=== PATIENT | female | born 1975 | race Caucasian/White ===

== ENCOUNTER → 2021-04-24 | Outpatient (CLI) | payer OTHER ==
--- NOTE | 2021-05-09 06:36 | SLS ---
SLEEP STUDY This is a 46-year-old female patient who is currently under our care at the pulmonary clinic because of chronic cough. The patient has other comorbidities including acid reflux, chronic anxiety, and history of depression. Furthermore, possibility of sleep apnea was also entertained because of loud snoring and reported episodes of stopping breathing in the middle of the night and some degree of increased sleepiness. For that reason, a home sleep study was ordered. PERTINENT PHYSICAL FINDINGS: Height is 5 feet, 9 inches, weight is 248 and BMI is 36.6. The [employer] ApneaLink system was used to complete the home sleep study. Total recording duration was 8 hours and 0 minutes. The study started at 10:35 pm and ended at 6:35 am. RESULTS: Respiratory count showed a total of 0 obstructive apneas, one central apnea, 0 mixed apneas, 42 obstructive hypopneas, resulting apnea-hypopnea index was 5.5. OXYGENATION ANALYSIS: Only 36 oxygen desaturations were encountered where the pulse ox dropped by more than 4%. Minimum pulse ox was 89 percent. This patient spent no time at a pulse ox of 88 percent and below and the majority of sleep study, the patient maintained a pulse ox of 90% and above. CARDIAC SUMMARY: Average heart rate was 69, minimum heart rate 48, maximum is 103. Rhythm was sinus. IMPRESSION: 1. Mild obstructive sleep apnea, AHI of 5.5. 2. No evidence of any significant nocturnal oxygen desaturation. 3. Obesity BMI of 36. 4. Chronic cough. 5. Chronic hypersomnia. 6. History of depression. 7. Acid reflux. 8. Chronic allergic rhinitis. 9. Generalized anxiety disorder. PLAN: Would like to discuss the findings with the patient. This is a case of mild obstructive sleep apnea with an AHI of 5.5. I favor to offer this patient some conservative treatments of weight loss and sleeping on her side and implementing good sleep hygiene measures. She carries a BMI of 36.6 and losing approximately 5-10 percent of her current body weight would help positively impact her mild sleep apnea. I do not think there is any immediate need for CPAP therapy knowing that her disease is mild and the patient is not encountering any major nocturnal oxygen desaturation. Her comorbidities are minimal at this point in time. We will discuss the findings with the patient. We will encourage her to proceed with this above-mentioned conservative approaches. MMODL / IJN: [id number] /
== END ==
LOC: SLEEP 17:26
PROVIDERS: ATTEND Internal Medicine Critical Care Medicine
DX: G47.33 Obstructive sleep apnea (adult) (pediatric) (principal); E66.9 Obesity, unspecified; Z68.36 Body mass index [BMI] 36.0-36.9, adult; R05 Cough; F32.9 Major depressive disorder, single episode, unspecified; K21.9 Gastro-esophageal reflux disease without esophagitis; F41.9 Anxiety disorder, unspecified; J30.9 Allergic rhinitis, unspecified

== ENCOUNTER 2021-07-27 09:03 | Day surgery (SDC) | payer OTHER ==
[2021-07-26 09:59] VITALS: BMI 36.9
[~2021-07-27 09:03] MED LIST: LACTATED RINGERS 1,000 ML IV SCH
[2021-07-27 09:22] VITALS: RESP 18; TEMP 97.8
[2021-07-27] MEDS ORDERED: LACTATED RINGERS 1,000 ML IV ONE (09:23)
[2021-07-27] MEDS ORDERED: PROPOFOL 10 MG/ML 20 ML VIAL IV ONE (10:19)
--- NOTE | 2021-07-27 10:33 | P.PCN ---
Date of Procedure: 07/27/21 Procedure(s) Performed: BRIEF HISTORY: Patient is a 46-year-old, pleasant, white female scheduled for an upper endoscopy as a part of evaluation of chronic cough since November 2019. She is presently on omeprazole 40 mg daily with no help. She is been evaluated by Dr. Ramirez and ENT and our was negative.. PROCEDURE PERFORMED: Esophagogastroduodenoscopy with biopsy. PREOPERATIVE DIAGNOSIS: Chronic cough of 1 year duration IV sedation per anesthesia. PROCEDURE: After informed consent was obtained, the patient was brought into the endoscopy unit. IV sedation was administered by Anesthesia under continuous monitoring. Initially the Olympus GIF-140 video endoscope was inserted into the mouth. Esophagus intubated without any difficulty. It was gradually advanced into the stomach and duodenum and carefully examined. The bulb and the second part of the duodenum appeared normal. The scope at this time was withdrawn to the stomach, adequately insufflated with air, and upon careful examination, mucosa of the antrum, scattered polyps and biopsies were done from this area. The body, cardia and the fundus appeared normal. The scope was then withdrawn into the esophagus. The GE junction was located at 39 cm from the incisors. Small sliding-type well hernia noted. The esophagus appeared normal. There were no erosions or ulcerations seen, biopsies were done from the distal esophagus and the patient tolerated the procedure well. IMPRESSION: 1. Small sliding type hiatal hernia but no evidence of esophagitis or Hendricks's esophagus. 2. Several small gastric polyps. RECOMMENDATIONS: The findings of this examination were discussed with the patient as well as a family. She was advised to follow with the biopsy results. She will continue with omeprazole 40 mg daily and she'll be seen in office in 3 months.
[2021-07-27 10:39] VITALS: BP 113/67; PULSE 88
== END 2021-07-27 11:19 | disposition home or self-care (01) ==
LOC: ORWHC2ENDO 09:03
PROVIDERS: ATTEND Internal Medicine Gastroenterology
DX: K44.9 Diaphragmatic hernia without obstruction or gangrene (principal); K29.50 Unspecified chronic gastritis without bleeding; K31.7 Polyp of stomach and duodenum
CPT/HCPCS: 81025; 88305; 43239; J2704